=== PATIENT | male | born 1965 | race Caucasian/White ===

== ENCOUNTER 2017-12-31 15:45 | Emergency (ER) | payer MEDICAID ==
[~2017-12-31] VITALS: Ht 177.8 cm; Wt 87.1 kg
[2017-12-31 16:01] VITALS: Ht 177.8 cm; Wt 87.1 kg
[2017-12-31 17:19] VITALS: BP 131/71
== END 2017-12-31 17:19 | disposition home or self-care (01) ==
LOC: ED 15:45
DX: B95.62 Methicillin resistant Staphylococcus aureus infection as the cause of diseases classified elsewhere (principal); F41.9 Anxiety disorder, unspecified